=== PATIENT | male | born 1960 | race Caucasian/White ===

== ENCOUNTER → 2020-04-05 | Outpatient (CLI) | payer OTHER ==
[~2020-04-05] MED LIST: ALBU90AE INH; ATOR10TA9 PO
== END | disposition home or self-care (01) ==
LOC: STAR 10:07
PROVIDERS: ATTEND Orthopaedic Surgery Hand Surgery
DX: Z01.818 Encounter for other preprocedural examination (principal); Z20.822 Contact with and (suspected) exposure to COVID-19; M65.321 Trigger finger, right index finger
CPT/HCPCS: 87635; 93005

== ENCOUNTER 2020-04-11 05:25 | Day surgery (SDC) | payer OTHER ==
[~2020-04-11] VITALS: Ht 167.6 cm; Wt 77.0 kg
[2020-04-11] MEDS ORDERED: LACTATED RINGERS 1,000 ML IV SCH (06:00)
[2020-04-11] MEDS ORDERED: CHLORHEXIDINE 15 ML UDC MM ONE (06:00)
[2020-04-11] MEDS ORDERED: BUPIVACAINE/PF 0.5% ONE (06:01)
[2020-04-11] MEDS ORDERED: LIDOCAINE-MPF 1%, 5ML ONE (06:01)
[2020-04-11] MEDS ORDERED: EPINEPHRINE 1 MG/ML, 1ML ONE (06:01)
[2020-04-11] MEDS ORDERED: CHLORHEXIDINE 15 ML UDC ONE (06:04)
[2020-04-11 06:22] VITALS: BP 146/92
[2020-04-11] MEDS ORDERED: FENTANYL PF 100 MCG/2ML ONE (06:38)
[2020-04-11] MEDS ORDERED: FENTANYL PF 100 MCG/2ML IV PRN (07:00)
[2020-04-11] MEDS ORDERED: ACETAMINOPHEN 325 MG TABLET PO PRN (07:00)
[2020-04-11] MEDS ORDERED: PROPOFOL 10 MG/ML, 20ML ONE (07:01)
== END 2020-04-11 08:45 | disposition home or self-care (01) ==
LOC: OUT 05:25
PROVIDERS: ATTEND Orthopaedic Surgery Hand Surgery
DX: M65.321 Trigger finger, right index finger (principal); J45.909 Unspecified asthma, uncomplicated; E78.00 Pure hypercholesterolemia, unspecified; Z79.899 Other long term (current) drug therapy
CPT/HCPCS: 26055; J0171; J2704; J3010; J7120